=== PATIENT | male | born 1955 | race Caucasian/White ===

== ENCOUNTER 2016-11-24 13:03 | Emergency (ER) | payer MEDICAID ==
[2016-11-24] MEDS ORDERED: LORazepam 2 MG/ML INJ IVP ONE (13:09)
[2016-11-24] MEDS ORDERED: NS 1,000 ML IV ONE (13:09)
--- NOTE | 2016-11-24 13:13 | EDPHY ---
H & P HPI/ROS: CHIEF COMPLAINT: Seizure HISTORY OF PRESENT ILLNESS: Patient is a 61-year-old diabetic man who is brought to the emergency department by EMS after having a seizure at graduation. He has never had seizures before. Witnesses told paramedics that lasted about 1 minutes and was generalized tonic-clonic. His postictal for about 3-5 minutes going to EMS. He states that he did not feel himself when he woke this morning but he has not been ill per se. He has not had a fever. He denies significant alcohol abuse or benzodiazepine use. He does take gabapentin and morphine for chronic low back pain. He had an subdural abscess 3 years ago in his lower back. His diabetes is poorly controlled any a significant peripheral neuropathy with bilateral foot drop and atrophy. He denies chest pain or shortness of breath. He has a mild headache now and did before his seizures well. He states that he feels slightly lightheaded prior to the episode. He got up to go use a drink of water and then went back to [place] before the seizure again. Denies any new focal weakness or numbness or paralysis. REVIEW OF SYSTEMS: Constitutional: denies: chills, fever, recent illness, recent injury EENTM: denies: blurred vision, double vision, nose congestion Respiratory: denies: cough, shortness of breath Cardiac: denies: chest pain, irregular heart rate, lightheadedness, palpitations Gastrointestinal/Abdominal: denies: abdominal pain, diarrhea, nausea, vomiting, blood streaked stools Genitourinary: denies: dysuria, frequency, hematuria, pain Musculoskeletal: denies: joint pain, muscle pain Skin: denies: lesions, rash, jaundice, bruising Neurological: See HPI Hematologic/Lymphatic: denies: blood clots, easy bleeding, easy bruising Immunologic/allergic: denies: HIV/AIDS, transplant EXAM: GENERAL: Well-appearing, well-nourished and in no acute distress. HEAD: Atraumatic, normocephalic. EYES: Pupils equal round and reactive to light, extraocular movements intact, sclera anicteric, conjunctiva are normal. ENT: TMs normal, nares patent, oropharynx clear without exudates. Moist mucous membranes. NECK: Normal range of motion, supple without lymphadenopathy or JVD. LUNGS: Breath sounds clear to auscultation bilaterally and equal. No wheezes rales or rhonchi. HEART: Regular rate and rhythm without murmurs, rubs or gallops. ABDOMEN: Soft, nontender, normoactive bowel sounds. No guarding, no rebound. No masses appreciated. BACK: No CVA tenderness, no spinal tenderness, step-offs or deformities EXTREMITIES: Normal range of motion, no pitting or edema. No clubbing or cyanosis. NEUROLOGICAL: Cranial nerves II through XII grossly intact. Normal speech, normal gait. 5/5 strength, normal movement in all extremities, normal sensation PSYCH: Normal mood, normal affect. SKIN: Small skin tears to right forearm Source: Patient, EMS Exam Limitations: No limitations - Medical/Surgical History Hx Asthma: No Hx Chronic Respiratory Disease: No Hx Diabetes: No Hx Cardiac Disease: No Hx Renal Disease: No Hx Cirrhosis: No Hx Alcoholism: No Hx HIV/AIDS: No Other PMH: Diabetes, peripheral neuropathy, chronic low back pain - Family History Significant Family History: No pertinent family hx - Social History Smoking Status: Former smoker Alcohol Use: Sober Drug Use: None Constitutional: Initial Vital Signs Temperature (C) 36.8 C 11/24/16 13:14 Heart Rate 75 11/24/16 13:14 Respiratory Rate 20 11/24/16 13:14 Blood Pressure 114/66 11/24/16 13:14 O2 Sat (%) 93 11/24/16 13:14 O2 Delivery Mode Room Air O2 (L/minute) 2 Allergies/Adverse Reactions: No Known Allergies Allergy (Unverified 11/24/16 13:12) Home Medications: Medication Instructions Recorded Avastin 11/24/16 Doxycycline Hyclate [Vibramycin] 100 mg PO BID #30 cap 11/24/16 Gabapentin 11/24/16 Levemir 11/24/16 morphINE 11/24/16 Medical Decision Making - Diagnostics EKG Interpretation: An EKG obtained and was read and documented in trace view. Please see trace view for full reading and report. Sinus rhythm, no acute ischemic changes Imaging Results: Imaging Impressions Head CT 11/24/16 13:09 Impression: 1. Minimal cerebral atrophy. 2. No acute hemorrhage, hydrocephalus or mass effect. 3.Consider MRI of the brain without and with contrast enhancement, if there is continued clinical concern. Findings and recommendations discussed with Emergency Department physician, MALU PATTON at 14:13 hour, 11/24/2016. Final report concurs with initial preliminary interpretation. Chest X-Ray 11/24/16 14:23 Impression: 1. No acute findings in the chest. 2. Elevated right hemidiaphragm. ED Course/Re-evaluation: 2:20 p.m. the patient's family is now here. They describe with does not sound like seizure all but more of a syncopal event. Patient stated that he was not feeling himself today. He felt lightheaded at the event. He got up to get a drink and soon after sitting down began staring. He collapsed to the side. He did not have any convulsions. Witnesses tried to help him sit up but he was limp. He came to about a minute later. The patient has a chronic wound over his left lateral foot that is been treated at the wound care clinic in [place]. He finished a course of doxycycline 2 weeks ago. He is now being treated with packing changes and dressing only. His states that it is slightly more erythematous and warm today than it was previously. Patient states that he has felt off ever since they began the packing changes. I will start the patient back on doxycycline. I am concerned that his infection is again worsening and that this is responsible for his syncopal event today and his recent episodes of "not feeling himself" and lightheadedness. We did discuss admission and he is family decline. They will follow up with her wound care doctor in [place] on Sunday. We discussed indications for returning. His vital signs have been completely stable here in the department and on EMS arrival. Differential Diagnosis: Partial list of the Differential diagnosis considered include but were not limited to; syncope, seizure, sepsis, dehydration and although unlikely based on the history and physical exam, I also considered electrolyte abnormality, acute coronary disease, intracranial hemorrhage, CVA. I discussed these differential diagnoses and the plan with the patient as well as the usual and expected course. The patient understands that the diagnosis is provisional and that in medicine we are not always correct and that further workup is often warranted. Usual and customary warnings were given. All of the patient's questions were answered. The patient was instructed to return to the emergency department should the symptoms at all worsen or return, otherwise to followup with the physician as we discussed. - Data Points Laboratory Results: Laboratory Results 11/24/16 13:26 11/24/16 13:26 11/24/16 11/24/16 11/24/16 14:36 14:35 13:26 WBC RBC Hgb Hct MCV MCH MCHC RDW Plt Count MPV Neut % (Auto) Lymph % (Auto) Davie % (Auto) Eos % (Auto) Baso % (Auto) Nucleat RBC Rel Count Absolute Neuts (auto) Absolute Lymphs (auto) Absolute Monos (auto) Absolute Eos (auto) Absolute Basos (auto) Absolute Nucleated RBC Immature Gran % Immature Gran # PT 12.9 SEC SEC (12.0-15.0) INR 0.98 (0.83-1.16) APTT 26.9 SEC SEC (23.0-38.0) VBG Lactic Acid 1.6 mmol/L mmol/L (0.7-2.1) Sodium 136 mEq/L mEq/L (134-144) Potassium 4.2 mEq/L mEq/L (3.5-5.2) Chloride 100 mEq/L mEq/L (97-110) Carbon Dioxide 26 mEq/l mEq/l (22-31) Anion Gap 10 mEq/L mEq/L (8-16) BUN 14 mg/dL mg/dL (7-23) Creatinine 0.6 mg/dL L mg/dL (0.7-1.3) Estimated GFR > 60 Glucose 146 mg/dL H mg/dL (70-100) Calcium 9.7 mg/dL mg/dL (8.5-10.4) 11/24/16 13:26 WBC 12.70 10^3/uL H 10^3/uL (3.80-9.50) RBC 5.33 10^6/uL 10^6/uL (4.40-6.38) Hgb 16.4 g/dL g/dL (13.7-17.5) Hct 48.6 % % (40.0-51.0) MCV 91.2 fL fL (81.5-99.8) MCH 30.8 pg pg (27.9-34.1) MCHC 33.7 g/dL g/dL (32.4-36.7) RDW 12.3 % % (11.5-15.2) Plt Count 269 10^3/uL 10^3/uL (150-400) MPV 11.3 fL fL (8.7-11.7) Neut % (Auto) 68.8 % % (39.3-74.2) Lymph % (Auto) 23.0 % % (15.0-45.0) Davie % (Auto) 6.2 % % (4.5-13.0) Eos % (Auto) 1.1 % % (0.6-7.6) Baso % (Auto) 0.3 % % (0.3-1.7) Nucleat RBC Rel Count 0.0 % % (0.0-0.2) Absolute Neuts (auto) 8.74 10^3/uL H 10^3/uL (1.70-6.50) Absolute Lymphs (auto) 2.92 10^3/uL 10^3/uL (1.00-3.00) Absolute Monos (auto) 0.79 10^3/uL 10^3/uL (0.30-0.80) Absolute Eos (auto) 0.14 10^3/uL 10^3/uL (0.03-0.40) Absolute Basos (auto) 0.04 10^3/uL 10^3/uL (0.02-0.10) Absolute Nucleated RBC 0.00 10^3/uL 10^3/uL (0-0.01) Immature Gran % 0.6 % % (0.0-1.1) Immature Gran # 0.07 10^3/uL 10^3/uL (0.00-0.10) PT INR APTT VBG Lactic Acid Sodium Potassium Chloride Carbon Dioxide Anion Gap BUN Creatinine Estimated GFR Glucose Calcium Medications Given: Discontinued Medications Sodium Chloride (Ns) 1,000 mls @ 0 mls/hr IV ONCE ONE PRN Reason: Wide Open Stop: 11/24/16 13:10 Last Admin: 11/24/16 13:31 Dose: 1,000 mls Lorazepam (Ativan Injection) 1 mg IVP EDNOW ONE Stop: 11/24/16 13:10 Last Admin: 11/24/16 13:31 Dose: 1 mg Departure - Departure Disposition: Home, Routine, Self-Care Clinical Impression: Diabetic foot infection Syncope Qualifiers: Syncope type: unspecified Qualified Code(s): R55 - Syncope and collapse Condition: Fair Instructions: Syncope (ED), Diabetic Foot Ulcers (ED) Referrals: Patient,NotPresent [Unknown] - As per Instructions Prescriptions: Doxycycline Hyclate [Vibramycin] 100 mg PO BID #30 cap
[2016-11-24 13:33] LABS: % IMMATURE GRANULYOCYTES 0.6 % (0.0-1.1); ABSOLUTE IMMATURE GRANULOCYTES 0.07 10^3/uL (0.00-0.10); ADD DIFF? NO; ADD MORPH? NO; ADD SCAN? NO; ATYPICAL LYMPHOCYTE FLAG 10 (0-99); FRAGMENT RBC FLAG 0 (0-99); HEMATOCRIT 48.6 % (40.0-51.0); HEMOGLOBIN 16.4 g/dL (13.7-17.5); LEFT SHIFT FLG 0 (0-99); LIPEMIA HEMOLYSIS FLAG 80 (0-99); MEAN CELL HEMOGLOBIN 30.8 pg (27.9-34.1); MEAN CELL HEMOGLOBIN CONCENTR. 33.7 g/dL (32.4-36.7); MEAN CELL VOLUME 91.2 fL (81.5-99.8); MEAN PLATELET VOLUME 11.3 fL (8.7-11.7); PLATELET CLUMPS FLAG 0 (0-99); PLATELET COUNT 269 10^3/uL (150-400); RED BLOOD CELL COUNT 5.33 10^6/uL (4.40-6.38); RED CELL DISTRIBUTION WIDTH 12.3 % (11.5-15.2)
[2016-11-24 13:57] LABS: ANION GAP 10 mEq/L (8-16); CALCIUM 9.7 mg/dL (8.5-10.4); CARBON DIOXIDE 26 mEq/l (22-31); CHLORIDE 100 mEq/L (97-110); CREATININE 0.6 mg/dL (0.7-1.3); GLOMERULAR FILTRATION RATE > 60; GLUCOSE 146 mg/dL (70-100); POTASSIUM 4.2 mEq/L (3.5-5.2); SODIUM 136 mEq/L (134-144)
--- NOTE | 2016-11-24 14:03 | CPEKG ---
Heart Rate: 77 RR Interval: 779 P-R Interval: 156 QRSD Interval: 86 QT Interval: 376 QTC Interval: 426 P Vina: 27 QRS Vina: -2 T Wave Vina: 28 EKG Severity - NORMAL ECG - EKG Impression: SINUS RHYTHM Electronically Signed By: Niraj Gomez 24-Nov-2016 14:05:37
[2016-11-24 16:00] VITALS: BP 102/52; PULSE 75; RESP 16; TEMP 98.6; O2SAT 90
[2016-11-24 17:05] LABS: INR 0.98 (0.83-1.16); PROTIME(PATIENT) 12.9 SEC (12.0-15.0)
[2016-11-24 17:06] LABS: APTT 26.9 SEC (23.0-38.0)
== END 2016-11-24 15:59 | disposition home or self-care (01) ==
DX: R55 Syncope and collapse (principal); L08.9 Local infection of the skin and subcutaneous tissue, unspecified; E11.628 Type 2 diabetes mellitus with other skin complications; Z87.891 Personal history of nicotine dependence
CPT/HCPCS: 96374; J2060